=== PATIENT | female | born 1980 | race Two or more races ===

== ENCOUNTER → 2023-09-28 | Outpatient (CLI) | payer MEDICAID, OTHER ==
[~2023-09-28] MED LIST: MECL1TAB42 PO; ZOFR4T PO
[2023-09-28 12:55] LABS: Basophils # (auto) 0.1 10 ^3/uL (0-0.2); Basophils % (auto) 1.5 % (0.0-2.0); Eosinophils # (auto) 0 10 ^3/uL (0-0.8); Eosinophils % (auto) 0.2 % (0.0-7.0); Hematocrit 37.1 % (36.0-46.0); Hemoglobin 12.5 g/dL (12.2-16.2); Lymphocytes % (auto) 47.4 % (10.0-50.0); Mean Corpuscular Hgb Conc. 33.7 g/dL (32.0-36.0); Mean Corpuscular Volume 95.1 fL (80.0-100.0); Monocytes # (auto) 0.4 10 ^3/uL (0-1.3); Monocytes % (auto) 6.4 % (0.0-12.0); Neutrophils # (auto) 2.8 10 ^3/uL (1.6-8.6); Neutrophils % (auto) 44.5 % (37.0-80.0); Nucleated Red Blood Cells % 0.1 %; Red Blood Cells 3.91 10^6/uL (4.0-5.20); Red Cell Distribution Width 13.6 % (11.8-14.3); White Blood Cell 6.4 10^3/uL (4.4-10.8)
[2023-09-28 13:30] LABS: Alanine Aminotransferase 21 U/L (7-40); Albumin 4.5 g/dL (3.2-4.8); Alkaline Phosphatase 65 U/L (46-116); Anion Gap 7 (5-15); Aspartate Aminotransferase 15 U/L (13-40); Blood Urea Nitrogen 8 mg/dL (9-23); Calcium 9.5 mg/dL (8.7-10.4); Carbon Dioxide 28 mmol/L (20-30); Chloride 105 mmol/L (98-107); Glucose 106 mg/dL (74-106); Potassium 3.7 mmol/L (3.5-5.1); Sodium 140 mmol/L (136-145)
[2023-09-28 13:31] LABS: Bilirubin, Total 0.4 mg/dL (0.2-1.0); Total Protein 7.5 g/dL (5.7-8.2)
[2023-09-28 13:36] LABS: Follicle Stimulating Hormone 36.2 IU/L (SEE BELOW)
[2023-09-28 13:37] LABS: Prolactin 5.42 ng/mL (2.8-29.2)
[2023-09-28 14:03] LABS: Leuteinizing Hormone 22.3 IU/L
== END | disposition home or self-care (01) ==
LOC: LAB 12:26 → EDBD 12:26
PROVIDERS: ATTEND Obstetrics & Gynecology
DX: Z01.419 Encounter for gynecological examination (general) (routine) without abnormal findings (principal)
CPT/HCPCS: 36415; 80053; 82670; 83001; 83002; 84146; 85025; 87086

== ENCOUNTER 2023-09-29 20:11 | Emergency (ER) | payer OTHER, MEDICAID ==
[~2023-09-29] VITALS: Ht 157.5 cm; Wt 72.7 kg
[2023-09-29 21:03] LABS: Urine Bacteria FEW /hpf (None Seen); Urine Blood Negative /uL (Negative); Urine Clarity Clear (Clear); Urine Color Colorless (Yellow); Urine Protein, UAD Negative (Negative); Urine Specific Gravity 1.005 (1.001-1.035); Urine Urobilinogen Normal (Negative); Urine WBC 2 /hpf (0 - 5); Urine pH 6.5 (5.0-8.0)
[2023-09-29] MEDS: MECLIZINE HCL 25 MG TAB PO ONE (21:15)
[2023-09-29 21:56] LABS: Rapid Influenza A Negative (Negative); Rapid Influenza B Negative (Negative)
[2023-09-29 21:57] LABS: COVID19 ANTIGEN SOFIA FIA NEGATIVE (NEGATIVE)
[2023-09-29] MEDS ORDERED: MECL1TAB42 PO (22:37)
[2023-09-29] MEDS ORDERED: ZOFR4T PO (22:37)
[2023-09-29 22:47] VITALS: BP 134/77; PULSE 77; RESP 18; TEMP 98.5; O2SAT 98
== END 2023-09-29 22:48 | disposition home or self-care (01) ==
LOC: ER 20:11
DX: R42 Dizziness and giddiness (principal); Z20.822 Contact with and (suspected) exposure to COVID-19
CPT/HCPCS: 36415; 70450; 81001; 82962; 87426; 87804; 93005; 99284; J8597